=== PATIENT | male | born 1980 | race Caucasian/White ===

== ENCOUNTER 2024-03-26 15:55 | Emergency (ER) | payer BC, OTHER ==
[2024-03-26 16:17] LABS: Absolute Eosinophils 0.1 K/uL (0-0.5); Absolute Lymphocytes (CBC) 1.4 K/uL (0.7-4.9); Absolute Monocytes 0.8 K/uL (0.1-1.3); Absolute Neutrophil 7.7 K/uL (1.8-8.0); Basophils % 0.5 % (0-1.3); Eosinophils % 1.3 % (0-4.4); Hematocrit 46.3 % (39.6-49.0); Hemoglobin 15.7 g/dL (13.6-17.9); Lymphocytes % 14.2 % (15.3-44.8); MCH 30.4 pg (27.0-35.0); MCHC 33.9 g/dL (32.0-36.0); MCV 89.5 fL (80-100); MPV 8.3 fL (7.6-11.3); Monocytes % 7.5 % (3.3-12.3); Neutrophils % 76.5 % (41.7-73.7); Platelets 233 thou/uL (152-406); RBC Red Blood Cell Count 5.17 M/uL (4.33-5.43); Red Cell Distribution Width 15.4 % (12.1-15.2)
[2024-03-26] MEDS ORDERED: ONDANSETRON 4 MG/2 ML VIAL ONE (16:18)
[2024-03-26] MEDS ORDERED: NA CHLORIDE 0.9% 2,000 ML ONE (16:19)
[2024-03-26 16:21] LABS: PT Prothrombin Time 11.9 SECONDS (9.4-12.5); Protime INR 1.06
[2024-03-26 16:38] LABS: ALT/SGPT 42 U/L (16-61); AST/SGOT 28 U/L (15-37); Albumin 3.8 g/dL (3.4-5.0); Albumin/Globulin Ratio 1.2 (1.1-1.8); Alkaline Phosphatase 70 U/L (45-117); Anion Gap 7.5 mEq/L (5.0-15.0); BUN Blood Urea Nitrogen 11 mg/dL (7-18); Bicarbonate 28 mEq/L (21-32); Bilirubin Total 0.4 mg/dL (0.2-1.0); Creatine Phosphokinase 316 U/L (39-308); Globulin 3.3 g/dL (2.3-3.5); Glomerular Filtration Rate 85 ml/min (=/>90); Glucose Level 95 mg/dL (74-106); Magnesium 2.2 mg/dL (1.6-2.4); NT PRO-BNP 37 pg/mL (<125); Potassium 3.5 mEq/L (3.5-5.1); Protein, Total 7.1 g/dL (6.4-8.2); Sodium Level 142 mEq/L (136-145); Troponin High Sensitivity 10.2 pg/mL (<58.9)
[2024-03-26 16:41] LABS: Bilirubin Direct < 0.2 mg/dL (0-0.2); Bilirubin Indirect, Calculated 0.2 mg/dL (0.2-0.8)
--- NOTE | 2024-03-26 17:26 | RAD REPORT ---
Procedure: Chest Single View HISTORY: Cough COMPARISON: 2014 FINDINGS: The lungs appear clear of acute infiltrate. No significant pleural effusion noted. The heart is normal size. IMPRESSION: No acute abnormality is displayed.
--- NOTE | 2024-03-26 17:26 | RAD REPORT ---
EXAMINATION: CT HEAD WITHOUT CONTRAST CT CERVICAL SPINE WITHOUT CONTRAST CLINICAL INDICATION: Syncope. Head and neck injury status post fall. Head and neck pain TECHNIQUE: Axial CT images from the skull base to the vertex without intravenous contrast. Axial CT i mages through the cervical spine were obtained without intravenous contrast. Sagittal and coronal reformatted images were created from the data set. Coronal and sagittal reformatted images were creat ed from the data set. One or more of the following dose reduction techniques were used: Automated exposure control, adjustment of the mA and/or kV according to patient size, and/or iterative reconstr uction. Unless otherwise specified, incidental findings do not require dedicated imaging follow-up. [id number]. Comparison: none FINDINGS: Intracranial bleed not noted. Ventricles are normal in caliber. No significant hypodensity within the brain No extra-axial fluid collection. No fluid within the sinuses/mastoids No fracture or dislocation is seen involving the cervical spine. Postsurgical changes involve the spine IMPRESSION: No acute intracranial abnormality noted A cervical fracture is not seen. If the patient continues to have symptoms to suggest acute [employer]/spinal pathology then MRI would be rec ommended
--- NOTE | 2024-03-26 17:40 | EDPHYS ---
Physician Documentation [facility] Name: Dennis Gerber Age: 43 yrs Sex: Male : 1980 Arrival Date: 03/26/2024 Time: 15:55 Bed 7 Private MD: ED Physician Lavon Phoenix HPI: 03/26 17:34 This 43 yrs old Male presents to ER via Wheelchair with complaints of Heat bing Exposure, Syncope. 17:34 The patient has experienced near-syncope, almost passed out, felt dizzy, felt faint. bing Onset: The symptoms/episode began/occurred just prior to arrival. Duration: This was a single episode, that lasted 30 second(s). Context: the episode(s) was witnessed, by family, . Associated injury: The patient did not suffer any apparent associated injury. Associated signs and symptoms: Pertinent positives: dizziness, lightheadedness, palpitations. Current symptoms: weak , hot and tired , non focal. The patient has not experienced similar symptoms in the past. Historical: - Allergies: 15:58 No Known Allergies; aa5 - PMHx: 15:58 TBI; ADHD; Anxiety; Chronic back pain; Depressive disorder; aa5 - PSHx: 15:58 Back Sx; aa5 - Immunization history:: Adult Immunizations unknown. - Infectious Disease History:: Denies. - Social history:: Smoking status: Patient reports the use of cigarette tobacco products. - Family history:: not pertinent. ROS: 17:34 Constitutional: Negative for fever, chills, and weight loss, Eyes: Negative for injury, bing pain, redness, and discharge, ENT: Negative for injury, pain, and discharge, Neck: Negative for injury, pain, and swelling, Cardiovascular: Negative for chest pain, palpitations, and edema, Respiratory: Negative for shortness of breath, cough, wheezing, and pleuritic chest pain, Abdomen/GI: Negative for abdominal pain, nausea, vomiting, diarrhea, and constipation, Back: Negative for injury and pain, : Negative for injury, bleeding, discharge, and swelling, MS/Extremity: Negative for injury and deformity, Skin: Negative for injury, rash, and discoloration, Psych: Negative for depression, anxiety, suicide ideation, homicidal ideation, and hallucinations, Allergy/Immunology: Negative for hives, rash, and allergies, Endocrine: Negative for neck swelling, polydipsia, polyuria, polyphagia, and marked weight changes, Hematologic/Lymphatic: Negative for swollen nodes, abnormal bleeding, and unusual bruising, 17:34 Neuro: Positive for near syncope, weakness, Exam: 17:34 Constitutional: This is a well developed, well nourished patient who is awake, alert, bing and in no acute distress. Head/Face: Normocephalic, atraumatic. Eyes: Pupils equal round and reactive to light, extra-ocular motions intact. Lids and lashes normal. Conjunctiva and sclera are non-icteric and not injected. Cornea within normal limits. Periorbital areas with no swelling, redness, or edema. ENT: Nares patent. No nasal discharge, no septal abnormalities noted. Tympanic membranes are normal and external auditory canals are clear. Oropharynx with no redness, swelling, or masses, exudates, or evidence of obstruction, uvula midline. Mucous membranes moist. Neck: Trachea midline, no thyromegaly or masses palpated, and no cervical lymphadenopathy. Supple, full range of motion without nuchal rigidity, or vertebral point tenderness. No Meningismus. Chest/axilla: Normal chest wall appearance and motion. Nontender with no deformity. No lesions are appreciated. Cardiovascular: Regular rate and rhythm with a normal S1 and S2. No gallops, murmurs, or rubs. Normal PMI, no JVD. No pulse deficits. Respiratory: Lungs have equal breath sounds bilaterally, clear to auscultation and percussion. No rales, rhonchi or wheezes noted. No increased work of breathing, no retractions or nasal flaring. Abdomen/GI: Soft, non-tender, with normal bowel sounds. No distension or tympany. No guarding or rebound. No evidence of tenderness throughout. Back: No spinal tenderness. No costovertebral tenderness. Full range of motion. Male : Normal genitalia with no discharge or lesions. Skin: Warm, dry with normal turgor. Normal color with no rashes, no lesions, and no evidence of cellulitis. MS/ Extremity: Pulses equal, no cyanosis. Neurovascular intact. Full, normal range of motion. Neuro: Awake and alert, GCS 15, oriented to person, place, time, and situation. Cranial nerves II-XII grossly intact. Motor strength 5/5 in all extremities. Sensory grossly intact. Cerebellar exam normal. Normal gait. Psych: Awake, alert, with orientation to person, place and time. Behavior, mood, and affect are within normal limits. 17:34 ECG was reviewed by the Attending Physician. Vital Signs: 15:58 BP 159 / 91; Pulse 86; Resp 20 S; Temp 98.7(O); Pulse Ox 100% on R/A; Weight 113.4 kg aa5 (R); Height 6 ft. 0 in. (R); 16:38 BP 157 / 96; Pulse 66; Resp 18 S; Temp 98.5(O); Pulse Ox 98% on R/A; aa5 17:39 BP 159 / 95; Pulse 68; Pulse Ox 100% on R/A; ap3 15:58 Body Mass Index 33.91 (113.40 kg, 182.88 cm) aa5 MDM: 16:00 Medical Screening Exam initiated bing 17:36 Differential Diagnosis: cardiac arrhythmia, cerebrovascular accident, drug effect, bing emotional response, GI bleed, idiopathic syncope, pseudo seizure, seizure, transient ischemic attack, vasovagal episode. Data reviewed: vital signs, nurses notes, EMS record, lab test result(s), EKG, radiologic studies. Consideration of Admission/Observation Escalation of care including admission/observation considered. I considered the following discharge prescriptions or medication management in the emergency department Medications were administered in the Emergency Department. See MAR. Independent interpretation of the following test(s) in the Emergency Department EKG: See my EKG interpretation above. Test considered but Not performed: CT: no ct ab/pel. Historians other than the Patient: Family Member: well informed. Care significantly affected by the following chronic conditions: Obesity. Counseling: I had a detailed discussion with the patient and/or guardian regarding the historical points, exam findings, and any diagnostic results supporting the discharge/admit diagnosis, the presence of at least one elevated blood pressure reading (>120/80) during this emergency department visit, lab results, radiology results, the need for outpatient follow up, for definitive care, a family practitioner. 03/26 16: Order name: Basic Metabolic Panel; Complete Time: 17:34 [facility] 03/26 16: Order name: CBC with Diff; Complete Time: 17:34 [facility] 03/26 16: Order name: LFT's; Complete Time: 17:34 03/26 16:01 Order name: Magnesium; Complete Time: 17:34 03/26 16:01 Order name: NT PRO-BNP; Complete Time: 17:34 03/26 16: Order name: PT-INR; Complete Time: 17:34 03/26 16:01 Order name: Troponin HS; Complete Time: 17:34 03/26 16:01 Order name: CPK; Complete Time: 17:34 03/26 16: Order name: XRAY Chest (1 view); Complete Time: 17:34 03/26 16: Order name: CT Head C Spine; Complete Time: 17:34 03/26 16: Order name: EKG; Complete Time: 16:02 03/26 16: Order name: Cardiac monitoring; Complete Time: 16:13 03/26 16: Order name: EKG - Nurse/Tech; Complete Time: 16:13 03/26 16:01 Order name: IV Saline Lock; Complete Time: 16:13 03/26 16: Order name: Labs collected and sent; Complete Time: 16:13 03/26 16:01 Order name: O2 Per Protocol; Complete Time: 16:13 03/26 16:01 Order name: O2 Sat Monitoring; Complete Time: 16:13 [facility] 03/26 17:40 Order name: PO challenge; Complete Time: 17:48 bing EC:34 Rate is 68 beats/min. Rhythm is regular. QRS [place] is Normal. VA interval is normal. QRS bing interval is normal. QT interval is normal. No Q waves. T waves are Normal. No ST changes noted. Clinical impression: Normal ECG and No evidence of ischemia. Interpreted by me. Reviewed by me. Administered Medications: 16:13 CANCELLED (Physician Discretion): ondansetron 4 mg IVP once; over 2 minutes aa5 16:24 Drug: NS 0.9% IV 1000 ml IV at 1000 ml once; to be given as a bolus over 60 minutes aa5 Route: IV; Rate: 1000 ml; Site: right antecubital; 18:10 Follow up: IV Status: Completed infusion; IV Intake: 1000ml aa5 16:24 Drug: NS 0.9% IV 1000 ml IV at 1000 ml once; to be given as a bolus over 60 minutes aa5 Route: IV; Rate: 1000 ml; Site: right antecubital; 17:39 Follow up: IV Status: Completed infusion; IV Intake: 1000ml aa5 16:24 Drug: Ondansetron IVP 8 mg IVP once; over 2 minutes Route: IVP; Site: right antecubital;aa5 16:30 Follow up: Response: No adverse reaction aa5 Disposition Summary: 03/26/24 17:39 Discharge Ordered Notes: Location: Home [facility] Problem: new bing Symptoms: have improved bing Condition: Stable bing Diagnosis - Dehydration bing - Heat exhaustion, unspecified bing Followup: bing - With: Private Physician - When: 2 - 3 days - Reason: Recheck today's complaints, Continuance of care, Re-evaluation by your physician Discharge Instructions: - Discharge Summary Sheet bing - Dehydration, Adult bing - Near-Syncope, [id number] bing - Dehydration, Adult, [id number] bing Forms: - Medication Reconciliation Form bing - Antibiotic Education bing - Prescription Opioid Use bing - Patient Portal Instructions bing - Leadership Thank You Letter [facility] Prescriptions: - ondansetron 4 mg Oral Tablet,disintegrating - take 1 tablet ORAL route every 6-8 hours; 20 tablet; Refills: 0, Product bing Selection Permitted Signatures: Dispatcher [employer] EDLavon Troy MD MD cha Calderon, Audri, RN RN aa5 Corrections: (The following items were deleted from the chart) 16:13 16:13 Ondansetron IVP 4 mg IVP once; over 2 minutes ordered. aa5 aa5
--- NOTE | 2024-03-26 17:40 | ER ---
Nurse's Notes [facility] Name: Dennis Gerber Age: 43 yrs Sex: Male : 1980 Arrival Date: 03/26/2024 Time: 15:55 Bed 7 Private MD: Diagnosis: Dehydration;Heat exhaustion, unspecified Presentation: 03/26 15:58 Chief complaint: Patient states: reports syncopal episode while "cleaning out a shed", aa5 pt's states "he called me when he came to because he was by himself". 15:58 Coronavirus screen: At this time, the client does not indicate any symptoms associated aa5 with coronavirus-19. Ebola Screen: Patient denies travel to an Ebola-affected area in the 21 days before illness onset. Initial Sepsis Screen: Does the patient meet any 2 criteria? No. Patient's initial sepsis screen is negative. Does the patient have a suspected source of infection? No. Patient's initial sepsis screen is negative. Risk Assessment: Do you want to hurt yourself or someone else? Patient reports no desire to harm self or others. Onset of symptoms was March 26, 2024. 15:58 Acuity: SANDHYA 2 aa5 15:58 Method Of Arrival: Wheelchair aa5 Historical: - Allergies: 15:58 No Known Allergies; aa5 - PMHx: 15:58 TBI; ADHD; Anxiety; Chronic back pain; Depressive disorder; aa5 - PSHx: 15:58 Back Sx; aa5 - Immunization history:: Adult Immunizations unknown. - Infectious Disease History:: Denies. - Social history:: Smoking status: Patient reports the use of cigarette tobacco products. - Family history:: not pertinent. Screenin:30 [facility] ED Fall Risk Assessment (Adult) History of falling in the last 3 months, aa5 including since admission No falls in past 3 months (0 pts) Confusion or Disorientation No (0 pts) Intoxicated or Sedated No (0 pts) Impaired Gait No (0 pts) Mobility Assist Device Used No (0 pt) Altered Elimination No (0 pt) Score/Fall Risk Level 0 - 2 = Low Risk Oriented to surroundings, Maintained a safe environment, Educated pt \\T\\ family on fall prevention, incl call for assistance when getting out of bed. Abuse screen: Denies threats or abuse. Nutritional screening: No deficits noted. Tuberculosis screening: No symptoms or risk factors identified. Assessment: 15:58 General: Appears uncomfortable, Behavior is cooperative. Pain: Complains of pain in aa5 whole body Quality of pain is described as aching. Neuro: Level of Consciousness is awake, alert, obeys commands, Oriented to person, place, time, situation, Reports generalized weakness . Cardiovascular: Heart tones S1 S2 present Rhythm is regular. Respiratory: Airway is patent Respiratory effort is even, unlabored, Respiratory pattern is regular, symmetrical. GI: Abdomen is round non-distended, Bowel sounds present X 4 quads. Abd is soft and non tender X 4 quads. Reports nausea, Patient currently denies vomiting. : No signs and/or symptoms were reported regarding the genitourinary system. EENT: No signs and/or symptoms were reported regarding the EENT system. Derm: Skin is moist, Skin is red, Skin temperature is hot. Musculoskeletal: Range of motion: intact in all extremities. 16:38 Reassessment: Patient is alert, oriented x 3, equal unlabored respirations, skin aa5 warm/dry/pink. Patient states feeling better. 17:13 Reassessment: Patient is alert, oriented x 3, equal unlabored respirations, skin aa5 warm/dry/pink. Patient states feeling better. Patient states symptoms have improved. Pt back from CT scan . 18:10 Reassessment: Patient is alert, oriented x 3, equal unlabored respirations, skin aa5 warm/dry/pink. Patient states feeling better. Patient states symptoms have improved. Vital Signs: 15:58 BP 159 / 91; Pulse 86; Resp 20 S; Temp 98.7(O); Pulse Ox 100% on R/A; Weight 113.4 kg aa5 (R); Height 6 ft. 0 in. (R); 16:38 BP 157 / 96; Pulse 66; Resp 18 S; Temp 98.5(O); Pulse Ox 98% on R/A; aa5 17:39 BP 159 / 95; Pulse 68; Pulse Ox 100% on R/A; ap3 15:58 Body Mass Index 33.91 (113.40 kg, 182.88 cm) aa5 ED Course: 15:58 Patient arrived in ED. eb 15:58 Arm band placed on Patient placed in an exam room, on a stretcher. aa5 15:58 Patient has correct armband on for positive identification. Placed in gown. Bed in low aa5 position. Call light in reach. Side rails up X2. Adult w/ patient. Client placed on continuous cardiac and pulse oximetry monitoring. NIBP monitoring applied. quality assurance monitor chassis on. Pulse ox on. NIBP on. 16:00 Lavon Phoenix MD is Attending Physician. [facility] 16:00 Sasha Rey, RN is Primary Nurse. aa5 16:10 Initial lab(s) drawn, by me, sent to lab. Inserted saline lock: 20 gauge in right aa5 antecubital area, using aseptic technique. Blood collected. Flushed with 10 mL NS. 16:29 Triage completed. aa5 16:36 XRAY Chest (1 view) In Process Unspecified. EDMS 17:04 CT Head C Spine In Process Unspecified. EDMS 18:10 No provider procedures requiring assistance completed. IV discontinued, intact, aa5 bleeding controlled, No redness/swelling at site. Pressure dressing applied. Administered Medications: 16:13 CANCELLED (Physician Discretion): ondansetron 4 mg IVP once; over 2 minutes aa5 16:24 Drug: NS 0.9% IV 1000 ml IV at 1000 ml once; to be given as a bolus over 60 minutes aa5 Route: IV; Rate: 1000 ml; Site: right antecubital; 18:10 Follow up: IV Status: Completed infusion; IV Intake: 1000ml aa5 16:24 Drug: NS 0.9% IV 1000 ml IV at 1000 ml once; to be given as a bolus over 60 minutes aa5 Route: IV; Rate: 1000 ml; Site: right antecubital; 17:39 Follow up: IV Status: Completed infusion; IV Intake: 1000ml aa5 16:24 Drug: Ondansetron IVP 8 mg IVP once; over 2 minutes Route: IVP; Site: right antecubital;aa5 16:30 Follow up: Response: No adverse reaction aa5 Medication: 16:31 VIS not applicable for this client. aa5 Intake: 17:39 IV: 1000ml; Total: 1000ml. aa5 18:10 IV: 1000ml; Total: 2000ml. aa5 Outcome: 17:[address] . [facility] 18:10 Discharged to home ambulatory, aa5 18:10 Condition: improved 18:10 Discharge instructions given to patient, significant other, Instructed on discharge instructions, follow up and referral plans. medication usage, Demonstrated understanding of instructions, follow-up care, medications, Prescriptions given X 1, 18:13 Patient left the ED. aa5 Signatures: Dispatcher [employer] EDNH Lavon Phoenix MD MD cha Calderon, Audri, RN RN aa5 Miranda Gayle RN RN ap3 Erika Blackman Corrections: (The following items were deleted from the chart) 16:34 15:58 Neuro: Level of Consciousness is awake, alert, obeys commands, Oriented to aa5 person, place, time, situation, aa5 16:40 16:38 BP 157 / 96; Pulse 66bpm; Resp 18bpm; Spontaneous; Pulse Ox 98% RA; aa5 aa5
[2024-03-26 21:20] VITALS: TEMP 98.5
[2024-03-26 21:21] VITALS: BP 159/95; O2SAT 100
--- NOTE | 2024-03-29 12:59 | EKG ---
Test Date: 2024-03-26 Test Time: 16:05:59 Breast Splitter: LEIF MEASUREMENT RESULTS: Intervals: Rate: 68 MT: 146 QRSD: 96 QT: 364 QTc: 387 [place]: P: 47 MT: 146 QRS: 65 T: 32 INTERPRETIVE STATEMENTS: Normal sinus rhythm Normal ECG No previous ECG available for comparison Electronically Signed On 03-29-24 12:52:07 CDT by Chepe Regan
== END 2024-03-26 18:13 | disposition home or self-care (01) ==
LOC: ER 15:55
DX: E86.0 Dehydration (principal); T67.5XXA Heat exhaustion, unspecified, initial encounter; R53.1 Weakness; Z87.820 Personal history of traumatic brain injury
CPT/HCPCS: 96361; 93005; 85025; 80048; 36415; 83735; 82550; 85610; 80076; 84484; 83880; 70450; 72125; 71045; 96374; 99285; J2405; J7030